=== PATIENT | male | born 1970 | race African-American/Black ===

== ENCOUNTER 2018-04-11 21:52 | Emergency (ER) | payer OTHER ==
[~2018-04-11] VITALS: Ht 170.2 cm; Wt 102.6 kg
[2018-04-11] MEDS ORDERED: SODIUM CHLORIDE 0.9% 1000ML 1,000 ML IV STA (22:39)
[2018-04-11 22:41] VITALS: Ht 170.2 cm; Wt 102.6 kg
[2018-04-11 22:42] VITALS: O2SAT 97
[2018-04-11] MEDS ORDERED: PATIENT'S ALLERGY INFO NEEDS ENTERED STA (22:59)
[2018-04-11] MEDS ORDERED: OPTIRAY 320 IV PRN (23:00)
[2018-04-11 23:08] LABS: BASO % 0.3 %; BASO ABS # 0.04 K/uL (0-0.2); EOS % 1.2 %; EOS ABS # 0.14 K/uL (0-0.5); HEMOGLOBIN 14.2 g/dL (14.0-18.0); IG# 0.02 K/uL (0.00-0.02); LYMPH % 16.9 %; LYMPH ABS # 1.95 K/uL (1.2-3.4); MEAN CELL VOLUME 87.9 fL (80-100); MEAN CORPUSCULAR HEMOGLOBIN 31.2 pg (25-34); MEAN CORPUSCULAR HGB CONC 35.5 g/dl (32-36); MEAN PLATELET VOLUME 11.3 fL (7.4-10.4); MONO % 6.2 %; MONO ABS # 0.72 K/uL (0.11-0.59); NEUT % 75.2 %; PLATELET COUNT 224 K/uL (130-400); RED CELL DISTRIBUTION WIDTH CV 12.7 % (11.5-14.5); RED CELL DISTRIBUTION WIDTH SD 40.8 fL (36.4-46.3); WHITE BLOOD COUNT 11.57 K/uL (4.8-10.8)
[2018-04-11 23:27] LABS: ALBUMIN 4.2 gm/dl (3.4-5.0); ALKALINE PHOSPHATASE 77 U/L (45-117); ALT/SGPT 31 U/L (12-78); AST/SGOT 34 U/L (15-37); BLOOD UREA NITROGEN 9 mg/dl (7-18); CALCIUM 8.8 mg/dl (8.5-10.1); CARBON DIOXIDE 26 mmol/L (21-32); CREATININE 0.77 mg/dl (0.60-1.40); GLUCOSE 95 mg/dl (70-99); POTASSIUM 3.8 mmol/L (3.5-5.1); SODIUM 138 mmol/L (136-145); TOTAL PROTEIN 7.3 gm/dl (6.4-8.2)
[2018-04-12] MEDS ORDERED: MAGNESIUM CITRATE 296 ML/BTL PO ONE (01:30)
[2018-04-12 01:37] VITALS: BP 130/77; PULSE 55; TEMP 36.5; O2SAT 96
--- NOTE | 2018-04-12 05:12 | EMERGENCY ROOM VISIT NOTE ---
History First contact with patient: 22:34 Chief Complaint: HEADACHE Stated Complaint: HEADACHE/LIGHTHEADED/SYNCOPE History of Present Illness The patient is a 47 year old male who presents to the Emergency Room with complaints of syncopal episode today who hit his head on the ground. Patient states he was sitting watching TV got lightheaded and passed out. Patient states he had lower abdominal pain today. Pain currently 3 out of 10. Nothing makes it better or worse. He describes his headache as throbbing, ranging severity 5 out of 10 to the frontal region. Patient denies chest pain, dyspnea , nausea, vomiting, diarrhea, fever, localized weakness, vision problems, balance problems, flulike illness, urinary symptoms, back pain no other concerns per patient. No drug use. Review of Systems An 10 system review of systems was completed with positives and pertinent negatives listed in the HPI. Past Medical/Surgical History GERD Social History Smoking Status: Never Smoker Alcohol Use: none Drug Use: none Occupation Status: other (Prisoner) Physical Exam Vital Signs Date Time Temp Pulse Resp B/P (MAP) Pulse Ox O2 Delivery O2 Flow Rate FiO2 04/12/18 01:37 36.5 55 11 130/77 96 04/11/18 22:52 48 11 95 04/11/18 22:48 111/64 124/81 04/11/18 22:48 48 15 111/64 95 Room Air 57 124/81 04/11/18 22:42 97 Room Air 04/11/18 22:12 36.5 49 22 166/90 97 Room Air 04/11/18 22:05 57 04/11/18 21:56 166/90 Physical Exam PHYSICAL EXAM: VITALS: Vitals are noted on the nurse's note and reviewed by myself. Vital signs stable. GENERAL: Male in shackles, in no acute distress, nondiaphoretic, well-developed well-nourished. SKIN: The skin was without obvious lacerations or abrasions. Capillary reflex less than 2 seconds. HEAD: Normocephalic atraumatic. EARS: External auditory canals clear, tympanic membranes pearly yonug without erythema or effusion bilaterally. No hemotympanums. No lilly sign. No mastoid tenderness. EYES: Pupils equal round and reactive to light and accommodation. Conjunctivae without injection, sclerae without icterus. Extraocular movements intact. NOSE: Patent, turbinates without inflammation or discharge. No sinus tenderness. No septal hematoma or bleeding. FACE: No facial bone tenderness. Full range of motion of the jaw without tenderness. MOUTH: Mucous membranes moist. Pharynx without erythema or exudate. Uvula midline. Airway patent. Tongue does not deviate. NECK: Supple without nuchal rigidity. Cervical spine is nontender. Full range of motion of the neck without tenderness. No JVD. HEART: Regular rate and rhythm without murmurs gallops or rubs. LUNGS: Clear to auscultation bilaterally without wheezes, rales or rhonchi. No dullness to percussion. No retractions or accessory muscle use. No chest wall tenderness. ABDOMEN: Positive bowel sounds x 4. Normal tympanic percussion. Soft, minimally tender to palpation lower abdomen, without masses or organomegaly. No guarding or rebound tenderness. MUSCULOSKELETAL: No tenderness of the thoracic or lumbar spine. No tenderness with pelvic rocking. Full range of motion without tenderness to palpation in all extremities. Normal gait. Strength 5/5 throughout. Peripheral pulses 2+. NEURO: Patient was alert and oriented to person place and time. Normal Mini- Mental status exam. Normal sensation to light and sharp touch. Negative Romberg and pronator drift. Cerebellar function intact. No focal neurological deficits. Medical Decision & Procedures Laboratory Results 04/11/18 22:05 Red Blood Count 4.55, Mean Corpuscular Volume 87.9, Mean Corpuscular Hemoglobin 31.2, Mean Corpuscular Hemoglobin Concent 35.5, Mean Platelet Volume 11.3, Neutrophils (%) (Auto) 75.2, Lymphocytes (%) (Auto) 16.9, Monocytes (%) (Auto) 6.2, Eosinophils (%) (Auto) 1.2, Basophils (%) (Auto) 0.3, Neutrophils # (Auto) 8.70, Lymphocytes # (Auto) 1.95, Monocytes # (Auto) 0.72, Eosinophils # (Auto) 0.14, Basophils # (Auto) 0.04 04/11/18 22:05 Test 04/11/18 22:05 04/12/18 00:55 White Blood Count 11.57 K/uL (4.8-10.8) Red Blood Count 4.55 M/uL (4.7-6.1) Hemoglobin 14.2 g/dL (14.0-18.0) Hematocrit 40.0 % (42-52) Mean Corpuscular Volume 87.9 fL (80-100) Mean Corpuscular Hemoglobin 31.2 pg (25-34) Mean Corpuscular Hemoglobin Concent 35.5 g/dl (32-36) Platelet Count 224 K/uL (130-400) Mean Platelet Volume 11.3 fL (7.4-10.4) Neutrophils (%) (Auto) 75.2 % Lymphocytes (%) (Auto) 16.9 % Monocytes (%) (Auto) 6.2 % Eosinophils (%) (Auto) 1.2 % Basophils (%) (Auto) 0.3 % Neutrophils # (Auto) 8.70 K/uL (1.4-6.5) Lymphocytes # (Auto) 1.95 K/uL (1.2-3.4) Monocytes # (Auto) 0.72 K/uL (0.11-0.59) Eosinophils # (Auto) 0.14 K/uL (0-0.5) Basophils # (Auto) 0.04 K/uL (0-0.2) RDW Standard Deviation 40.8 fL (36.4-46.3) RDW Coefficient of Variation 12.7 % (11.5-14.5) Immature Granulocyte % (Auto) 0.2 % Immature Granulocyte # (Auto) 0.02 K/uL (0.00-0.02) Anion Gap 7.0 mmol/L (3-11) Est Creatinine Clear Calc Drug Dose 135.4 ml/min Estimated GFR () 125.2 Estimated GFR (Non- 108.1 BUN/Creatinine Ratio 11.7 (10-20) Calcium Level 8.8 mg/dl (8.5-10.1) Total Bilirubin 0.5 mg/dl (0.2-1) Direct Bilirubin 0.2 mg/dl (0-0.2) Aspartate Amino Transf (AST/SGOT) 34 U/L (15-37) Alanine Aminotransferase (ALT/SGPT) 31 U/L (12-78) Alkaline Phosphatase 77 U/L (45-117) Troponin I < 0.015 ng/ml (0-0.045) Total Protein 7.3 gm/dl (6.4-8.2) Albumin 4.2 gm/dl (3.4-5.0) Thyroid Stimulating Hormone (TSH) 1.980 uIu/ml (0.300-4.500) Bedside Troponin I < 0.030 ng/ml (0-0.045) Medications Administered Medications (Trade) Dose Ordered Sig/Nanette Route Start Time Stop Time Status Last Admin Dose Admin Sodium Chloride 1,000 ml @ 999 mls/hr Q1H1M STAT IV 04/11/18 22:39 04/11/18 23:39 DC 04/11/18 22:39 999 MLS/HR Magnesium Citrate (Citrate Of Magnesia Soln) 296 ml NOW ONCE PO 04/12/18 01:30 04/12/18 01:31 DC 04/12/18 01:30 296 ML ED Course Prior records/ancillary studies reviewed. Triage Nursing notes reviewed. Additional history obtained from correction officers. The patient's history was concerning for syncope. Differential diagnosis: Etiologies such as vasovagal event, infection, hypoglycemia, electrolyte abnormalities, cardiac sources, intracerebral event, toxicologic, neurologic, as well as others were entertained. Physical examination: Patient is alert, interactive and well-appearing ER treatment provided: IV hydration with normal saline On reassessment the patient felt better. Diagnostics interpretation by me: ECG: Normal sinus, normal intervals, incomplete right bundle branch block, rate of 49. Impression sinus bradycardia with incomplete right bundle branch block interpreted by myself. The labs revealed 2 negative troponins 2. Stable H&H. Imaging studies: CT ABDOMEN & PELVIS With Contrast: No bowel obstruction or wall thickening Moderate stool in the colon Normal appendix Radiologist: Gold Soria MD CT HEAD: No ICH, mass effect or edema. No skull fracture. Radiologist: Gold Soria MD C-spine negative for fracture per radiology This appears to be consistent with syncope with lower abdominal pain most likely from constipation. Patient was neurovascularly and neurologically intact. No acute findings in the above workup. He is advised to follow-up tomorrow with the [facility] doctor for his syncopal episode or here in the ER sooner for chest pain, difficulty breathing, syncope, worsening signs or symptoms or as needed. Repeat abdominal exam was benign. Patient states he normally runs a low heart rate and this is not new. By the evaluation outlined above emergent etiologies such as infection, hypoglycemia, electrolyte abnormalities, cardiac sources, intracerebral event, toxicologic, neurologic,as well as others were deemed relatively unlikely. Patient ambulated out of this ER without difficulties. The pt informed about the findings as listed above. All questions were answered and pleased with the treatment. Return instructions were outlined and the patient was discharged in stable condition. Outpatient prescription management: Magnesium citrate Referral: The patient was referred back to their primary care physician for follow-up tomorrow for a recheck of the current condition. Case reviewed with my attending The chart was completed utilizing [employer] voice recognition software. Grammatical errors, random word insertions, pronoun errors, and incomplete sentences are an occassional consequence of this system due to software limitations, ambient noise, and hardware issues. Any formal questions or concerns about the content, text, or information contained within the body of this dictation should be directly addressed to the physician assistant to the director for clarification. Medical Decision As above Head Trauma GCS Score: 15 Medication Reconcilliation Current Medication List: was personally reviewed by me Blood Pressure Screening Patient's blood pressure: Normal blood pressure Impression Primary Impression: Constipation Additional Impressions: Syncope Head injury Departure Information Dispostion Home / Self-Care Condition GOOD Forms HOME CARE DOCUMENTATION FORM, IMPORTANT VISIT INFORMATION Patient Instructions Constipation, [facility], ED Head Injury Closed Additional Instructions Magnesium citrate: Drink half the bottle when you get up, if you do not have a bowel movement within 6 hours then drink the rest of the bottle. You can mix this with ahsan sandra 50:50. Stay near the toilet all day. Increase your fluid and fiber intake. Rest and drink plenty of fluids as tolerated. Continue current medications. Avoid strenuous activities and anything that worsens your pain. Resume normal activities once your symptoms resolve. Return to the ER immediately for worsening or persistent abdominal pain, vomiting, fevers, chest pains, difficulty breathing, worsening of your condition , or as needed. Follow up with your primary physician/[facility]iary Dr. in 2-3 days for a recheck of your current condition. Head injury: Read head injury handout and return for any symptoms. Tylenol 1000 mg as needed for pain (Maximum 3000 mg Tylenol in 24 hr period). Avoid alcohol and contact sports/activities for one week and follow up with family doctor prior to returning to these activities if still symptomatic. Ice and elevate head. If your symptoms persist more than a week then follow up with the penitentiary doctor. Return to ER sooner for headache, fevers, confusion, worsening signs or symptoms or as needed. Problem Qualifiers Primary Impression: Constipation Constipation type: unspecified constipation type Qualified Codes: K59.00 - Constipation, unspecified
--- NOTE | 2018-04-12 07:14 | DIAGNOSTIC IMAGING REPORT ---
ABDOMEN AND PELVIS CT WITH IV CONTRAST CT DOSE: 702.29 mGy.cm HISTORY: lower abd pain TECHNIQUE: Multiaxial CT images of the abdomen and pelvis were performed following the use of intravenous contrast. A dose lowering technique was utilized adhering to the principles of ALARA. COMPARISON STUDY: None. FINDINGS: The lung bases are clear. Bilateral L5 spondylolysis. No fractures within the visualized osseous structures. Suggestive of a midline anterior abdominal wall mesh. No evidence for a ventral hernia. Cholecystectomy. The liver, pancreas, spleen, and adrenal glands are unremarkable. No retroperitoneal lymphadenopathy. The bladder is mildly distended. No bladder wall thickening. No bowel wall thickening or obstruction. Normal appendix. No hydronephrosis. Normal right kidney. A 2.6 cm exophytic cyst within the upper pole of the left kidney. IMPRESSION: 1. No bowel wall thickening or obstruction. 2. Normal appendix. 3. Additional findings as described above. Electronically signed by: Víctor Robin M.D. 04/12/2018 7:12 AM Dictated Date/Time: 04/12/2018 7:07 AM
--- NOTE | 2018-04-12 07:58 | DIAGNOSTIC IMAGING REPORT ---
HEAD WITHOUT CONTRAST (CT) CLINICAL HISTORY: 47 years-old Male presenting with syncope/head injury. TECHNIQUE: Multidetector CT imaging of the head was performed without the use of intravenous contrast. IV contrast: None. A dose lowering technique was used consistent with the principles of ALARA (as low as reasonably achievable). COMPARISON: None. CT DOSE (mGy.cm): The estimated cumulative dose is 1134.03. FINDINGS: Welder Tack topogram: The patient is edentulous. Ventricles and sulci normal in size. Brain parenchyma normal in appearance with preserved young-white differentiation. No mass effect or midline shift. No hemorrhage or acute territorial infarct. No extra-axial fluid collection. Paranasal sinuses and mastoid air cells clear. Calvarium intact. IMPRESSION: 1. No acute intracranial abnormality. Electronically signed by: Michael Hurst M.D. 04/12/2018 7:57 AM Dictated Date/Time: 04/12/2018 6:54 AM
--- NOTE | 2018-04-12 08:20 | DIAGNOSTIC IMAGING REPORT ---
CERVICAL SPINE W/O CLINICAL HISTORY: 47 years-old Male presenting with fall, pain, headache. TECHNIQUE: Multidetector CT of the cervical spine was performed without the use of intravenous contrast. IV contrast: None. A dose lowering technique was used consistent with the principles of ALARA (as low as reasonably achievable). COMPARISON: None. CT DOSE (mGy.cm): The estimated cumulative dose is 1134.03 mGy.cm. FINDINGS: Wooden Tank Erector topogram: The patient is edentulous. Normal cervical lordosis. No acute fracture or subluxation. Unfused secondary ossification center noted at the dorsal tip of the spinous process of C7. Vertebral bodies maintain normal height and alignment. Intervertebral disc heights preserved. Trace anterior osteophytosis at C3-4 and C4-5. No significant disc osteophyte complex. Focal facet arthropathy on the left at C3-4. No osseous spinal canal or neural foraminal narrowing. Incidental note made of ponticulus posticus bilaterally. Skull base intact. Lung apices clear. Paraspinal soft tissues within normal limits. IMPRESSION: No acute osseous injury of the cervical spine. Electronically signed by: Michael Hurst M.D. 04/12/2018 8:18 AM Dictated Date/Time: 04/12/2018 6:55 AM
== END 2018-04-12 01:38 | disposition home or self-care (01) ==
LOC: C.EDB 21:56
DX: S09.90XA Unspecified injury of head, initial encounter (principal); W01.10XA Fall on same level from slipping, tripping and stumbling with subsequent striking against unspecified object, initial encounter; Y92.149 Unspecified place in prison as the place of occurrence of the external cause; K59.00 Constipation, unspecified; K21.9 Gastro-esophageal reflux disease without esophagitis